=== PATIENT | male | born 1975 | race Caucasian/White ===

== ENCOUNTER 2020-09-12 10:58 | Emergency (ER) | payer OTHER ==
[~2020-09-12] VITALS: Ht 175 cm; Wt 99.7 kg
[~2020-09-12 10:58] MED LIST: CYCL10TA9 PO; NAPR-243 PO; TRAM-21 PO
--- NOTE | 2020-09-12 11:20 | ED Cough/URI ---
General Stated Complaint: COVID +, SOB Source: patient Exam Limitations: no limitations History of Present Illness Date Seen by Provider: Sep 12, 2020 Time Seen by Provider: 11:19 Initial Comments 45yo male to the ER with a complaint of cough, congestion, shortness of breath and fever chills and body aches, positive for coronavirus. States that he is feeling worse over the last 24 hours. recently finished up a "z pack", still febrile and coughing. Using home nebulizer and inhalers. Denies diarrhea or loss of sense of taste and smell. Timing/Duration: yesterday Severity/Quality: moderate, dry cough Prior Episodes/Possible Cause: illness exposure Modifying Factors: Improves With Albuterol Inhaler, Improves With Albuterol Nebulizer Associated Symptoms: cough, fever/chills, muscle aches, shortness of breath Allergies and Home Medications Allergies Coded Allergies: Codeine (Verified Allergy, Unknown, 08/18/08) Home Medications Cyclobenzaprine Hcl 10 Mg Tablet, 1 EACH PO Q8H Prescribed by: BUBBA JAMES on 11/06/14 1452 Levofloxacin 750 Mg Tablet, 750 MG PO DAILY Prescribed by: GÉNESIS AYALA on 09/12/20 1240 Naproxen 500 Mg Tablet, 1 EACH PO TID PRN for PAIN FOR PAIN Prescribed by: BUBBA JAMES on 11/06/14 1452 Tramadol Hcl 50 Mg Tablet, 50 MG PO Q4H Prescribed by: BUBBA JAMES on 11/06/14 1452 Patient Home Medication List Home Medication List Reviewed: Yes Review of Systems Review of Systems Constitutional: see HPI EENTM: no symptoms reported Respiratory: cough, short of breath Cardiovascular: no symptoms reported Gastrointestinal: no symptoms reported Genitourinary: no symptoms reported Musculoskeletal: muscle cramps Skin: no symptoms reported Psychiatric/Neurological: No Symptoms Reported All Other Systems Reviewed Negative Unless Noted: Yes Past Eixviav-Sdrsbh-Uedper Hx Immunizations Up To Date Date of Influenza Vaccine: Jun 11, 2014 Seasonal Allergies Seasonal Allergies: No Past Medical History Tonsillectomy, Vasectomy Physical Exam Vital Signs - First Documented 09/12/20 11:00 Temp 37.8 Pulse 78 Resp 29 B/P (MAP) 143/87 (105) Pulse Ox 95 O2 Delivery Nasal Cannula O2 Flow Rate 2.00 Capillary Refill : Height: 5'9" Weight: 225lbs. oz. 102.886098xv; BMI Method:Stated General Appearance: WD/WN, no apparent distress HEENT: normal ENT inspection Neck: full range of motion, supple Respiratory: no respiratory distress, no accessory muscle use, crackles (left base) Cardiovascular: regular rate, rhythm, no murmur Gastrointestinal: normal bowel sounds, non tender, soft Extremities: non-tender, normal inspection, no pedal edema, no calf tenderness Neurologic/Psychiatric: no motor/sensory deficits, alert, normal mood/affect, oriented x 3 Skin: normal color, warm/dry Focused Exam Lactate Level 09/12/20 11:15: Lactic Acid Level 1.30 Lactic Acid Level Laboratory Tests Test 09/12/20 11:15 Lactic Acid Level 1.30 MMOL/L (0.50-2.00) Progress/Results/Core Measures Suspected Sepsis SIRS Temperature: Pulse: Respiratory Rate: Laboratory Tests 09/12/20 11:15: White Blood Count 8.3 Blood Pressure / Mean: 09/12/20 11:15: Lactic Acid Level 1.30 Laboratory Tests 09/12/20 11:15: Creatinine 0.98, Platelet Count 215 Results/Orders Lab Results Laboratory Tests Test 09/12/20 11:15 Range/Units White Blood Count 8.3 4.3-11.0 10^3/uL Red Blood Count 4.76 4.30-5.52 10^6/uL Hemoglobin 14.6 13.3-17.7 g/dL Hematocrit 41 40-54 % Mean Corpuscular Volume 86 80-99 fL Mean Corpuscular Hemoglobin 31 25-34 pg Mean Corpuscular Hemoglobin Concent 36 32-36 g/dL Red Cell Distribution Width 11.8 10.0-14.5 % Platelet Count 215 130-400 10^3/uL Mean Platelet Volume 9.3 9.0-12.2 fL Immature Granulocyte % (Auto) 1 % Neutrophils (%) (Auto) 79 H 42-75 % Lymphocytes (%) (Auto) 15 12-44 % Monocytes (%) (Auto) 6 0-12 % Eosinophils (%) (Auto) 0 0-10 % Basophils (%) (Auto) 0 0-10 % Neutrophils # (Auto) 6.6 1.8-7.8 10^3/uL Lymphocytes # (Auto) 1.2 1.0-4.0 10^3/uL Monocytes # (Auto) 0.5 0.0-1.0 10^3/uL Eosinophils # (Auto) 0.0 0.0-0.3 10^3/uL Basophils # (Auto) 0.0 0.0-0.1 10^3/uL Immature Granulocyte # (Auto) 0.0 0.0-0.1 10^3/uL Sodium Level 136 135-145 MMOL/L Potassium Level 3.6 3.6-5.0 MMOL/L Chloride Level 104 98-107 MMOL/L Carbon Dioxide Level 22 21-32 MMOL/L Anion Gap 10 5-14 MMOL/L Blood Urea Nitrogen 16 7-18 MG/DL Creatinine 0.98 0.60-1.30 MG/DL Estimat Glomerular Filtration Rate > 60 BUN/Creatinine Ratio 16 Glucose Level 102 70-105 MG/DL Lactic Acid Level 1.30 0.50-2.00 MMOL/L Calcium Level 8.6 8.5-10.1 MG/DL C-Reactive Protein High Sensitivity 5.51 H 0.00-0.50 MG/DL Procalcitonin 0.20 H <0.10 NG/ML Micro Results Microbiology 09/12/20 Blood Culture - Preliminary, Resulted No growth 09/12/20 Blood Culture - Preliminary, Resulted No growth My Orders Orders - GÉNESIS AYALA MD Ed Iv/Invasive Line Start (09/12/20 11:20) Cbc With Automated Diff (09/12/20 11:20) Basic Metabolic Panel (09/12/20 11:20) Lactic Acid Analyzer (09/12/20 11:20) Blood Culture (09/12/20 11:20) Hs C Reactive Protein (09/12/20 11:20) Procalcitonin (Pct) (09/12/20 11:20) Chest 1 View, Ap/Pa Only (09/12/20 11:20) Blood Culture (09/12/20 11:40) Vital Signs/I&O 09/12/20 09/12/20 09/12/20 11:00 11:00 12:35 Temp 37.8 Pulse 78 72 Resp 29 24 B/P (MAP) 143/87 (105) 117/60 (105) Pulse Ox 95 95 O2 Delivery Nasal Cannula Nasal Cannula Room Air O2 Flow Rate 2.00 2.00 Capillary Refill : Progress Note : Time: 12:25 Progress Note Patient taken off oxygen and continues to sat 9495%. The patient is lying prone in the room at the time of this measurement. He states that he feels a little bit better. His labs are reviewed. His procalcitonin is very slightly elevated at 0.2. CRP is elevated at 5. White count is within normal range. He does have a left basilar infiltrate on chest x-ray. He did recently finish up a round of Zithromax I am going to go ahead and put him on Levaquin 750 mg once a day for 5 days. I have encouraged him to continue to use the albuterol inhaler at home as well as the nebulizer every 4-6 hours. He verbalizes understanding. He is comfortable with discharge. I will also encourage him to use tea with honey for his cough as well as Robitussin-DM. Patient is stable for discharge Diagnostic Imaging Diagonstic Imaging: Xray Plain Films/CT/US/NM/MRI: chest Comments [facility], [place] NAME: GRICELDA IMLLAN [place] [facility] REC#: [id number] PT STATUS: REG ER : 1975 PHYSICIAN: GÉNESIS AYALA MD ADMIT DATE: 09/12/20/ER Draft Date of Exam:09/12/20 CHEST 1 VIEW, AP/PA ONLY Indication: Shortness of breath. Time of exam: 11:38 AM No prior studies are available for comparison. There is patchy infiltrate left mid to lower lung field. Right lung is fairly clear. No effusion or pneumothorax. Impression: Patchy left basilar pneumonia. Dictated on workstation # [id number] Dict: 09/12/20 1139 Trans: 09/12/20 1143 CV [id number] Interpreted by: KAREN HERNANDEZ MD Electronically signed by: Departure Impression Primary Impression: Pneumonia due to COVID-19 virus Disposition: 01 HOME, SELF-CARE Condition: Stable Departure-Patient Inst. Decision time for Depature: 12:27 Referrals: JOSE C SUMMERS MD (PCP/Family) Primary Care Physician Patient Instructions: Coronavirus Disease 2019 (COVID-19) (DC) Add. Discharge Instructions: Drink plenty of fluids to stay well-hydrated. I have given you a prescription for Levaquin, 750 mg tablets, take these once a day for 5 days. Continue to use the albuterol nebulizer every 6 hours as needed. You can use the albuterol inhaler in between as needed. Return to the emergency department if you have any worsening shortness of breath, oxygen saturations that dropped below 90 or any other emergent concerning symptoms. Scripts Levofloxacin (Levofloxacin) 750 Mg Tablet 750 MG PO DAILY for 5 Days, #5 TAB Prov: GÉNESIS AYALA MD 09/12/20 Copy Copies To 1: JOSE C SUMMERS MD, KATHRYN M MD Sep 12, 2020 11:19
[2020-09-12 11:28] LABS: BASOPHILS % (AUTO) 0 % (0-10); EOSINOPHILS % (AUTO) 0 % (0-10); HEMATOCRIT 41 % (40-54); HEMOGLOBIN 14.6 g/dL (13.3-17.7); LYMPHOCYTES # (AUTO) 1.2 10^3/uL (1.0-4.0); LYMPHOCYTES % (AUTO) 15 % (12-44); MEAN CORPUSCULAR HEMOGLOBIN 31 pg (25-34); MEAN CORPUSCULAR HGB CONC 36 g/dL (32-36); MEAN CORPUSCULAR VOLUME 86 fL (80-99); MEAN PLATELET VOLUME 9.3 fL (9.0-12.2); MONOCYTES # (AUTO) 0.5 10^3/uL (0.0-1.0); MONOCYTES % (AUTO) 6 % (0-12); NEUTROPHILS # (AUTO) 6.6 10^3/uL (1.8-7.8); NEUTROPHILS % (AUTO) 79 % (42-75); PLATELET COUNT 215 10^3/uL (130-400); WHITE BLOOD COUNT 8.3 10^3/uL (4.3-11.0)
[2020-09-12 11:38] LABS: CHLORIDE 104 MMOL/L (98-107); POTASSIUM 3.6 MMOL/L (3.6-5.0); SODIUM 136 MMOL/L (135-145)
[2020-09-12 11:39] LABS: CALCIUM 8.6 MG/DL (8.5-10.1)
[2020-09-12 11:40] LABS: GLUCOSE 102 MG/DL (70-105)
[2020-09-12 11:41] LABS: CARBON DIOXIDE 22 MMOL/L (21-32)
[2020-09-12 11:43] LABS: CREATININE SERUM 0.98 MG/DL (0.60-1.30); GFR ESTIMATED > 60
--- NOTE | 2020-09-12 11:43 | Diagnostic Imaging Report ---
Indication: Shortness of breath. Time of exam: 11:38 AM No prior studies are available for comparison. There is patchy infiltrate left mid to lower lung field. Right lung is fairly clear. No effusion or pneumothorax. Impression: Patchy left basilar pneumonia. Dictated by: Dictated on workstation # [id number]
[2020-09-12 11:44] LABS: BUN/CREATININE RATIO 16
[2020-09-12] MEDS ORDERED: LEVO750T39 PO ×2 (12:31→12:40)
[2020-09-12 12:35] VITALS: BP 117/60
== END 2020-09-12 12:35 | disposition home or self-care (01) ==
LOC: EDUNIT# 10:58 → ER 10:59
DX: U07.1 COVID-19 (principal); J12.82 Pneumonia due to coronavirus disease 2019; Z88.5 Allergy status to narcotic agent
CPT/HCPCS: 36415; 71045; 80048; 83605; 84145; 85025; 86141; 87040

== ENCOUNTER 2020-09-16 12:32 | Inpatient (IN) | payer OTHER ==
[~2020-09-16] VITALS: Ht 175 cm; Wt 98.2 kg
[~2020-09-16 12:32] MED LIST changes: +LEVO750T39 PO
[2020-09-16] MEDS ORDERED: LACTATED RINGERS 1,000 ML IV ONE ×3 (12:46→15:55)
[2020-09-16 13:08] LABS: BASOPHILS % (AUTO) 0 % (0-10); EOSINOPHILS % (AUTO) 0 % (0-10); HEMATOCRIT 43 % (40-54); LYMPHOCYTES # (AUTO) 0.8 10^3/uL (1.0-4.0); LYMPHOCYTES % (AUTO) 8 % (12-44); MEAN CORPUSCULAR HEMOGLOBIN 31 pg (25-34); MEAN CORPUSCULAR HGB CONC 35 g/dL (32-36); MEAN CORPUSCULAR VOLUME 87 fL (80-99); MEAN PLATELET VOLUME 9.7 fL (9.0-12.2); MONOCYTES # (AUTO) 0.6 10^3/uL (0.0-1.0); MONOCYTES % (AUTO) 6 % (0-12); NEUTROPHILS # (AUTO) 8.3 10^3/uL (1.8-7.8); NEUTROPHILS % (AUTO) 84 % (42-75); PLATELET COUNT 306 10^3/uL (130-400); WHITE BLOOD COUNT 9.9 10^3/uL (4.3-11.0)
[2020-09-16 13:09] LABS: ABG BASE EXCESS 0.3 MMOL/L (-2.5-2.5); ABG OXYGEN SATURATION 99 % (94-100); ABG PCO2 35 MMHG (35-45); ABG PH 7.45 (7.37-7.43); ABG PO2 101 MMHG (79-93); ABG TCO2 25.2 MMOL/L (21.0-31.0); ALLENS TEST YES-POS; INSPIRED O2 10 L; PATIENT TEMP 97.2; VENTILATOR NO
[2020-09-16] MEDS ORDERED: PIPERACILLIN SODIUM/TAZOBACTAM 4.5 GM in NS (IVPB) 100 ML IV ONE (13:15)
[2020-09-16 13:16] LABS: ALBUMIN 3.7 GM/DL (3.2-4.5)
[2020-09-16 13:17] LABS: CHLORIDE 100 MMOL/L (98-107); POTASSIUM 3.7 MMOL/L (3.6-5.0); SODIUM 138 MMOL/L (135-145)
[2020-09-16 13:18] LABS: CALCIUM 9.3 MG/DL (8.5-10.1)
[2020-09-16 13:19] LABS: GLUCOSE 131 MG/DL (70-105); TOTAL PROTEIN 7.5 GM/DL (6.4-8.2)
[2020-09-16 13:20] LABS: CARBON DIOXIDE 31 MMOL/L (21-32)
[2020-09-16 13:21] LABS: BILIRUBIN,TOTAL 0.5 MG/DL (0.1-1.0)
[2020-09-16 13:22] LABS: ALKALINE PHOSPHATASE 79 U/L (40-136)
[2020-09-16 13:23] LABS: CREATININE SERUM 0.96 MG/DL (0.60-1.30); GFR ESTIMATED > 60
[2020-09-16 13:24] LABS: BUN/CREATININE RATIO 17
[2020-09-16 13:26] LABS: ALANINE AMINOTRANSFERASE 88 U/L (0-55)
--- NOTE | 2020-09-16 13:35 | ED Respiratory ---
General Chief Complaint: Respiratory Problems Stated Complaint: LOW O2 Nursing Triage Note: oxygen 66 at home, COCVID pos since 09/05/2020 Source: patient, old records Exam Limitations: no limitations History of Present Illness Date Seen by Provider: Sep 16, 2020 Time Seen by Provider: 12:40 Initial Comments This 45-year-old gentleman presents to the emergency room with shortness of breath related to COVID-19. He has been ill since September 05, was subsequently diagnosed with COVID-19, and was seen in the emergency room on September 12. At that time he had already finished a azithromycin and dexamethasone. He was found to have a lobar pneumonia and started on Levaquin. He ambulates into the ER today with an oxygen saturation of 64% on room air. He reports recent diarrhea that resulted in a 9 pound weight loss. He denies any other significant medical problems. He reports his symptoms of body aches and diarrhea have improved but the shortness of breath persists. Allergies and Home Medications Allergies Coded Allergies: codeine (Verified Allergy, Unknown, 08/18/08) Home Medications Cyclobenzaprine Hcl 10 Mg Tablet, 1 EACH PO Q8H Prescribed by: BUBBA JAMES on 11/06/14 1452 Levofloxacin 750 Mg Tablet, 750 MG PO DAILY Prescribed by: GÉNESIS AYALA on 09/12/20 1240 Naproxen 500 Mg Tablet, 1 EACH PO TID PRN for PAIN FOR PAIN Prescribed by: BUBBA JAMES on 11/06/14 1452 Tramadol Hcl 50 Mg Tablet, 50 MG PO Q4H Prescribed by: BUBBA JAMES on 11/06/14 1452 Patient Home Medication List Home Medication List Reviewed: Yes Review of Systems Review of Systems Constitutional: no symptoms reported EENTM: no symptoms reported Respiratory: see HPI Cardiovascular: no symptoms reported Gastrointestinal: see HPI Genitourinary: no symptoms reported Musculoskeletal: see HPI, muscle pain Skin: no symptoms reported Psychiatric/Neurological: No Symptoms Reported Hematologic/Lymphatic: No Symptoms Reported Immunological/Allergic: no symptoms reported Past Vvxdrfc-Vfzxnt-Kbjxjv Hx Past Med/Social Hx: Reviewed Nursing Past Med/Soc Hx Patient Social History Alcohol Use: Denies Use Recreational Drug Use: No Type Used: Smokeless Tobacco 2nd Hand Smoke Exposure: Yes Recent Foreign Travel: No Contact w/Someone Who Travel: No Recent Infectious Disease Expo: No Recent Hopitalizations: No Physical Abuse: No Sexual Abuse: No Mistreated: No Fear: No Immunizations Up To Date Date of Influenza Vaccine: Jul 12, 2020 Seasonal Allergies Seasonal Allergies: No Past Medical History Surgeries: Yes Joint Replacement, Tonsillectomy, Vasectomy Respiratory: No Cardiac: No Neurological: No Genitourinary: No Gastrointestinal: No Musculoskeletal: No Endocrine: No HEENT: No Cancer: No Psychosocial: No Integumentary: No Blood Disorders: No Physical Exam Vital Signs - First Documented 09/16/20 09/16/20 12:45 12:50 Temp 36.3 Pulse 62 Resp 30 B/P (MAP) 117/92 (100) Pulse Ox 62 O2 Delivery Room Air O2 Flow Rate 10.00 Capillary Refill : Less Than 3 Seconds Height: 5'9" Weight: 225lbs. oz. 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, no motor/sensory deficits, alert, normal mood/affect, oriented x 3 Skin: normal color, warm/dry Focused Exam Lactate Level 09/16/20 12:55: Lactic Acid Level 2.00 Lactic Acid Level Laboratory Tests Test 09/16/20 12:55 Lactic Acid Level 2.00 MMOL/L (0.50-2.00) Progress/Results/Core Measures Suspected Sepsis Recent Fever Within 48 Hours: No Infection Criteria Present: None New/Unexplained Altered Menta: No Sepsis Screen: No Definite Risk SIRS Temperature: Pulse: 63 Respiratory Rate: 25 Laboratory Tests 09/16/20 12:55: White Blood Count 9.9 Blood Pressure 117 /92 Mean: 100 09/16/20 12:55: Lactic Acid Level 2.00 Laboratory Tests 09/16/20 12:55: Creatinine 0.96, Platelet Count 306, Total Bilirubin 0.5 09/16/20 13:40: INR Comment 1.0 Results/Orders Lab Results Laboratory Tests Test 09/16/20 12:55 09/16/20 13:01 09/16/20 13:40 Range/Units White Blood Count 9.9 4.3-11.0 10^3/uL Red Blood Count 4.91 4.30-5.52 10^6/uL Hemoglobin 15.0 13.3-17.7 g/dL Hematocrit 43 40-54 % Mean Corpuscular Volume 87 80-99 fL Mean Corpuscular Hemoglobin 31 25-34 pg Mean Corpuscular Hemoglobin Concent 35 32-36 g/dL Red Cell Distribution Width 11.9 10.0-14.5 % Platelet Count 306 130-400 10^3/uL Mean Platelet Volume 9.7 9.0-12.2 fL Immature Granulocyte % (Auto) 2 % Neutrophils (%) (Auto) 84 H 42-75 % Lymphocytes (%) (Auto) 8 L 12-44 % Monocytes (%) (Auto) 6 0-12 % Eosinophils (%) (Auto) 0 0-10 % Basophils (%) (Auto) 0 0-10 % Neutrophils # (Auto) 8.3 H 1.8-7.8 10^3/uL Lymphocytes # (Auto) 0.8 L 1.0-4.0 10^3/uL Monocytes # (Auto) 0.6 0.0-1.0 10^3/uL Eosinophils # (Auto) 0.0 0.0-0.3 10^3/uL Basophils # (Auto) 0.0 0.0-0.1 10^3/uL Immature Granulocyte # (Auto) 0.2 H 0.0-0.1 10^3/uL Sodium Level 138 135-145 MMOL/L Potassium Level 3.7 3.6-5.0 MMOL/L Chloride Level 100 98-107 MMOL/L Carbon Dioxide Level 31 21-32 MMOL/L Anion Gap 7 5-14 MMOL/L Blood Urea Nitrogen 16 7-18 MG/DL Creatinine 0.96 0.60-1.30 MG/DL Estimat Glomerular Filtration Rate > 60 BUN/Creatinine Ratio 17 Glucose Level 131 H 70-105 MG/DL Lactic Acid Level 2.00 0.50-2.00 MMOL/L Calcium Level 9.3 8.5-10.1 MG/DL Corrected Calcium 9.5 8.5-10.1 MG/DL Total Bilirubin 0.5 0.1-1.0 MG/DL Aspartate Amino Transf (AST/SGOT) 70 H 5-34 U/L Alanine Aminotransferase (ALT/SGPT) 88 H 0-55 U/L Alkaline Phosphatase 79 40-136 U/L Lactate Dehydrogenase 472 H 125-220 U/L C-Reactive Protein High Sensitivity 16.82 H 0.00-0.50 MG/DL Total Protein 7.5 6.4-8.2 GM/DL Albumin 3.7 3.2-4.5 GM/DL Procalcitonin 0.26 H <0.10 NG/ML Blood Gas Puncture Site RT RAD Blood Gas Patient Temperature 97.2 Arterial Blood pH 7.45 H 7.37-7.43 Arterial Blood Partial Pressure CO2 35 35-45 MMHG Arterial Blood Partial Pressure O2 101 H 79-93 MMHG Arterial Blood HCO3 24 23-27 MMOL/L Arterial Blood Total CO2 25.2 21.0-31.0 MMOL/L Arterial Blood Oxygen Saturation 99 94-100 % Arterial Blood Base Excess 0.3 -2.5-2.5 MMOL/L Eh Test YES-POS Blood Gas Ventilator Setting NO Blood Gas Inspired Oxygen 10 L Prothrombin Time 13.9 12.2-14.7 SEC INR Comment 1.0 0.8-1.4 Activated Partial Thromboplast Time 31 24-35 SEC D-Dimer 0.47 0.00-0.49 UG/ML My Orders Orders - KEEGAN PRO MD Lactated Ringers (Lr 1000 Ml Iv Solution (09/16/20 12:46) Dexamethasone Injection (Decadron Inje (09/16/20 12:46) Fibrin Degradation Products (09/16/20 12:56) Procalcitonin (Pct) (09/16/20 12:56) Hs C Reactive Protein (09/16/20 12:56) LDH (09/16/20 12:56) Cbc With Automated Diff (09/16/20 12:56) Comprehensive Metabolic Panel (09/16/20 12:56) Blood Culture (09/16/20 12:56) Sputum Culture (09/16/20 12:56) Urinalysis (09/16/20 12:56) Urine Culture (09/16/20 12:56) Protime With Inr (09/16/20 12:56) Partial Thromboplastin Time (09/16/20 12:56) Chest 1 View, Ap/Pa Only (09/16/20 12:56) Ed Iv/Invasive Line Start (09/16/20 12:56) Ed Iv/Invasive Line Start (09/16/20 12:56) Vital Signs Adult Sepsis Patie Q15M (09/16/20 12:56) O2 (09/16/20 12:56) Remove Rings In Anticipation O (09/16/20 12:56) Lactic Acid Analyzer (09/16/20 12:56) Dexamethasone Injection (Decadron Inje (09/16/20 13:00) Lactated Ringers (Lr 1000 Ml Iv Solution (09/16/20 13:00) Piperacillin Sodium/Tazobactam (Zosyn Vi (09/16/20 13:15) Arterial Blood Gas (09/16/20 13:04) Medications Given in ED Current Medications Medications Dose Ordered Sig/Snow Route Start Time Stop Time Status Last Admin Dose Admin Dexamethasone Sodium Phosphate 6 mg ONCE ONCE IV 09/16/20 13:00 09/16/20 13:01 DC 09/16/20 12:50 6 MG Lactated Ringer's 1,000 ml @ 0 mls/hr Q0M ONCE IV 09/16/20 13:00 09/16/20 13:01 DC 09/16/20 12:45 0 MLS/HR Piperacillin Sod/ Tazobactam Sod 4.5 gm/Sodium Chloride 100 ml @ 200 mls/hr ONCE ONCE IV 09/16/20 13:15 09/16/20 13:44 DC 09/16/20 13:50 200 MLS/HR Vital Signs/I&O 09/16/20 09/16/20 09/16/20 12:45 12:50 13:05 Temp 36.3 Pulse 62 63 Resp 30 25 B/P (MAP) 117/92 (100) Pulse Ox 62 86 100 O2 Delivery Room Air OxyMask O2 Flow Rate 10.00 80.00 Capillary Refill : Less Than 3 Seconds Blood Pressure Mean: 100 Progress Note #1: Time: 13:37 Progress Note Patient was immediately given oxygen supplementation. An oxygen mask at 10 L resulted in oxygen saturations of 87%. He is now on BiPAP and oxygen saturation is 100%. Dexamethasone is being administered. Work-up is still pending. Due to weight loss from diarrhea a liter of IV LR is also infusing. I discussed the case with Dr. Norwood who would like antibiotics initiated with Zosyn. Dr. Alfonso was also consulted. Progress Note #2: Time: 14:48 Progress Note Patient has been stable on BiPAP. D-dimer was negative. Procalcitonin was fairly low. He is being admitted to the ICU. Diagnostic Imaging Diagonstic Imaging: Xray Plain Films/CT/US/NM/MRI: chest Comments Chest x-ray viewed by me and report reviewed. See report below: NAME: GRICELDA MILLAN [facility] REC#: [id number] PT STATUS: REG ER : 1975 PHYSICIAN: KEEGAN PRO MD ADMIT DATE: 09/16/20/ER Draft Date of Exam:09/16/20 CHEST 1 VIEW, AP/PA ONLY Indication: Respiratory distress Portable chest 1:41 PM There are patchy alveolar infiltrates in both lungs. There are no effusions or pneumothoraces. IMPRESSION: Patchy pulmonary infiltrates in both lungs appears slightly worse compared to exam dated 09/12/2020. Dictated on workstation # [id number] Dict: 09/16/20 1343 Trans: 09/16/20 1345 [facility] [id number] Interpreted by: DEBBIE MOORE MD Departure Communication (Admissions) Time/Spoke to Admitting Phy: 13:05 Dr. Norwood Time/Spoke to Consulting Phy: 13:10 Dr. Alfonso Impression Primary Impression: Pneumonia due to COVID-19 virus Additional Impression: Respiratory failure Qualified Codes: J96.01 - Acute respiratory failure with hypoxia Disposition: ADMITTED INPATIENT Condition: Improved Admissions Decision to Admit Reason: Admit from ER (General) Decision to Admit/Date: Sep 16, 2020 Time/Decision to Admit Time: 12:40 Departure-Patient Inst. Referrals: JOSE C SUMMERS MD (PCP/Family) Primary Care Physician KEEGAN PRO MD Sep 16, 2020 13:35
--- NOTE | 2020-09-16 13:45 | Diagnostic Imaging Report ---
Indication: Respiratory distress Portable chest 1:41 PM There are patchy alveolar infiltrates in both lungs. There are no effusions or pneumothoraces. IMPRESSION: Patchy pulmonary infiltrates in both lungs appears slightly worse compared to exam dated 09/12/2020. Dictated by: Dictated on workstation # [id number]
[2020-09-16 14:16] LABS: FIBRIN DEGRADATION PRODUCTS 0.47 UG/ML (0.00-0.49); PROTHROMBIN TIME PATIENT 13.9 SEC (12.2-14.7)
[2020-09-16] MEDS: LACTATED RINGERS 1,000 ML IV SCH ×2 (16:27→23:22)
[2020-09-16] MEDS ORDERED: ACETAMINOPHEN 500 MG TAB (TYLENOL) PO PRN (16:30)
[2020-09-16] MEDS ORDERED: CATHETER FLUSH 10 ML SYR IV PRN (16:30)
[2020-09-16] MEDS ORDERED: hydrALAZINE (APESOLINE) 20 MG/ML VIAL IV PRN (16:45)
[2020-09-16 17:00] VITALS: BP 158/126
[2020-09-16] MEDS: ENOXAPARIN 40 MG/0.4 ML (LOVENOX) SYR SC SCH (17:47)
[2020-09-16 18:00] VITALS: BP 143/81
[2020-09-16 18:01] LABS: BILIRUBIN,URINE NEGATIVE (NEGATIVE); CLARITY,URINE CLEAR; COLOR,URINE YELLOW; GLUCOSE, URINE (UA) NEGATIVE (NEGATIVE); KETONES,URINE NEGATIVE (NEGATIVE); LEUKOCYTE ESTERASE ,URINE NEGATIVE (NEGATIVE); NITRITE,URINE NEGATIVE (NEGATIVE); PH,URINE 5.5 (5-9); PROTEIN,URINE 1+ (NEGATIVE)
[2020-09-16 18:08] LABS: BACTERIA,URINE NEGATIVE /HPF
[2020-09-16] MEDS: PIPERACILLIN/TAZO 4.5 GM/NS 100 ML IV SCH ×2 (20:28)
[2020-09-16] MEDS: FAMOTIDINE 20MG/2ML IV (PEPCID) IVP SCH (20:28)
[2020-09-16] MEDS: RT-ALBUTEROL INHALER HFA (VENTOLIN HFA) 18 GM IH SCH (22:24)
[2020-09-17] MEDS: RT-ALBUTEROL INHALER HFA (VENTOLIN HFA) 18 GM IH SCH ×4 (02:40→18:25)
[2020-09-17 02:54] LABS: BASOPHILS % (AUTO) 0 % (0-10); EOSINOPHILS % (AUTO) 0 % (0-10); HEMATOCRIT 40 % (40-54); HEMOGLOBIN 13.7 g/dL (13.3-17.7); LYMPHOCYTES # (AUTO) 0.9 10^3/uL (1.0-4.0); LYMPHOCYTES % (AUTO) 9 % (12-44); MEAN CORPUSCULAR HEMOGLOBIN 30 pg (25-34); MEAN CORPUSCULAR HGB CONC 35 g/dL (32-36); MEAN CORPUSCULAR VOLUME 88 fL (80-99); MEAN PLATELET VOLUME 9.3 fL (9.0-12.2); MONOCYTES # (AUTO) 0.7 10^3/uL (0.0-1.0); MONOCYTES % (AUTO) 7 % (0-12); NEUTROPHILS # (AUTO) 7.7 10^3/uL (1.8-7.8); NEUTROPHILS % (AUTO) 82 % (42-75); PLATELET COUNT 286 10^3/uL (130-400); WHITE BLOOD COUNT 9.4 10^3/uL (4.3-11.0)
[2020-09-17 03:09] LABS: CHLORIDE 103 MMOL/L (98-107); POTASSIUM 4.4 MMOL/L (3.6-5.0); SODIUM 137 MMOL/L (135-145)
[2020-09-17 03:10] LABS: CALCIUM 8.8 MG/DL (8.5-10.1); GLUCOSE 140 MG/DL (70-105)
[2020-09-17 03:12] LABS: CARBON DIOXIDE 18 MMOL/L (21-32)
[2020-09-17 03:14] LABS: CREATININE SERUM 0.96 MG/DL (0.60-1.30); GFR ESTIMATED > 60; PHOSPHORUS 3.9 MG/DL (2.3-4.7)
[2020-09-17 03:15] LABS: BUN/CREATININE RATIO 23
[2020-09-17 03:17] LABS: MAGNESIUM 2.1 MG/DL (1.6-2.4)
[2020-09-17] MEDS: POTASSIUM CL 10MEQ/50ML IVPB 50 ML IV SCH (03:30)
[2020-09-17] MEDS: KCL 20 MEQ TAB (K-DUR) PO SCH (03:31)
[2020-09-17] MEDS: MAGNESIUM 1 GM/100 ML IVPB 100 ML IV SCH (03:31)
[2020-09-17] MEDS: LACTATED RINGERS 1,000 ML IV SCH (03:46)
[2020-09-17] MEDS: PIPERACILLIN/TAZO 4.5 GM/NS 100 ML IV SCH ×6 (03:46→20:19)
--- NOTE | 2020-09-17 06:01 | Pulmonary Consultation ---
History of Present Illness History of Present Illness Date Seen by Provider: Sep 17, 2020 Time Seen by Provider: 05:55 Date of Admission Allergies and Home Medications Allergies Coded Allergies: codeine (Verified Allergy, Unknown, 08/18/08) Home Medications Albuterol Sulfate 18 Gm Hfa.aer.ad, 2 PUFF INH QID PRN for SHORTNESS OF BREATH, (Reported) Ascorbate Calcium 500 Mg Tablet, 500 MG PO DAILY, (Reported) Aspirin 81 Mg Tablet.dr, 81 MG PO DAILY, (Reported) Cetirizine HCl 10 Mg Tablet, 10 MG PO DAILY, (Reported) Cholecalciferol (Vitamin D3) 25 Mcg Capsule, 25 MCG PO DAILY, (Reported) Dexamethasone 6 Mg Tablet, 6 MG PO DAILY, (Reported) FILLED 08-19-2020 #10/10 DAY SUPPLY Levofloxacin 750 Mg Tablet, 750 MG PO DAILY, (Reported) FILLED 09-12-2020 #5/ DAY SUPPLY Meloxicam 15 Mg Tablet, 15 MG PO DAILY, (Reported) Multivitamin 1 Each Tablet, 1 EACH PO DAILY, (Reported) Zinc Gluconate 50 Mg Tablet, 50 MG PO DAILY, (Reported) Past Ytywsbs-Nbcugt-Rcgbqt Hx Past Med/Social Hx: Reviewed Nursing Past Med/Soc Hx Patient Social History Alcohol Use: Denies Use Recreational Drug Use: No Type Used: Smokeless Tobacco 2nd Hand Smoke Exposure: Yes Recent Foreign Travel: No Contact w/Someone Who Travel: No Recent Infectious Disease Expo: No Recent Hopitalizations: No Physical Abuse: No Sexual Abuse: No Mistreated: No Fear: No Immunizations Up To Date Date of Influenza Vaccine: Jul 17, 2020 Seasonal Allergies Seasonal Allergies: No Past Medical History Surgeries: Yes Joint Replacement, Tonsillectomy, Vasectomy Respiratory: No Cardiac: No Neurological: No Genitourinary: No Gastrointestinal: No Musculoskeletal: No Endocrine: No HEENT: No Cancer: No Psychosocial: No Integumentary: No Blood Disorders: No Review of Systems Time Seen by Provider: 10:45 Sepsis Event Evaluation Height, Weight, BMI Height: 5'9" Weight: 225lbs. oz. 102.340189eh; 32.00 BMI Method:Stated Exam Exam Vital Signs Date Time Temp Pulse Resp B/P (MAP) Pulse Ox O2 Delivery O2 Flow Rate FiO2 09/17/20 04:00 52 24 136/86 (104) 97 NIV Bilevel 75.00 09/17/20 03:00 62 127/78 (93) NIV Bilevel 75.00 09/17/20 02:40 61 30 94 75.00 09/17/20 02:00 55 30 122/77 (89) 96 NIV Bilevel 75.00 09/17/20 01:00 31 118/69 (84) 94 NIV Bilevel 75.00 09/17/20 00:15 63 09/17/20 00:01 66 30 137/86 (99) 92 NIV Bilevel 75.00 09/17/20 00:00 80/54 (61) 09/17/20 00:00 36.6 09/16/20 23:00 70 34 133/82 (102) 92 NIV Bilevel 75.00 09/16/20 22:31 NIV Bilevel 75.00 09/16/20 22:20 70 25 92 80.00 09/16/20 22:00 60 17 134/91 (105) 96 Vapotherm 30.00 75.00 09/16/20 21:00 68 26 116/65 (78) 95 Vapotherm 30.00 75.00 09/16/20 20:00 92 NIV Bilevel 30.00 75 09/16/20 20:00 68 22 171/109 (129) 92 Vapotherm 30.00 75.00 09/16/20 19:26 36.5 09/16/20 19:00 58 09/16/20 19:00 71 21 166/101 (122) 92 Vapotherm 30.00 75.00 09/16/20 18:35 58 09/16/20 18:24 93 Vapotherm 20.00 75 09/16/20 18:00 61 32 143/81 (101) 96 NIV Bilevel 75.00 09/16/20 17:00 62 28 158/126 (137) 97 NIV Bilevel 75.00 09/16/20 17:00 57 24 158/110 (126) 92 NIV Bilevel 75.00 09/16/20 16:29 36.0 09/16/20 16:10 95 NIV Bilevel 75 09/16/20 16:00 58 31 153/109 (124) 96 NIV Bilevel 75.00 09/16/20 16:00 91 NIV Bilevel 75 09/16/20 15:55 59 32 122/88 (100) 94 NIV Bilevel 10.00 09/16/20 15:43 77 09/16/20 13:05 63 25 100 80.00 09/16/20 12:50 86 OxyMask 10.00 09/16/20 12:45 36.3 62 30 117/92 (100) 62 Room Air I & O 09/17/20 07:00 Intake Total 625 ml Output Total 750 ml Balance -125 ml Height & Weight Height: 5'9" Weight: 225lbs. oz. 102.268469af; 32.00 BMI Method:Stated Capillary Refill: Less Than 3 Seconds Gastrointestinal: normal bowel sounds, non tender, soft Results Lab Laboratory Tests 09/16/20 12:55 09/17/20 02:30 Assessment/Plan Assessment/Plan Acute respiratory failure -BiPAP COVID pneumonia with ARDS -Decadron -CVP -BiPAP - Currently requiring at 80% -Vapotherm -Proning -Does not meet requirements for remdesivir Elevated LFTs -Monitor -Check LFTs TELMA FRANCISCO DO Sep 17, 2020 06:01
--- NOTE | 2020-09-17 08:27 | Diagnostic Imaging Report ---
INDICATION: DYSPNEA. TECHNIQUE: Single view chest 3:40 AM. CORRELATION STUDY: 09/16/2020 FINDINGS: Heart size remains enlarged. Scattered patchy bilateral pulmonary infiltrates persisting but overall appear perhaps slightly improved at the lung bases but may be slightly increased involving the right upper lobe. IMPRESSION: 1. Bilateral patchy pulmonary infiltrates are again demonstrated. Overall perhaps slightly improved at the lung bases but increased at the right upper lobe. Dictated by: Dictated on workstation # [id number]
[2020-09-17] MEDS: FAMOTIDINE 20MG/2ML IV (PEPCID) IVP SCH ×2 (09:06→21:05)
[2020-09-17] MEDS ORDERED: CETI10TA4 PO (14:12)
[2020-09-17] MEDS ORDERED: DEXA6TAB PO (14:12)
[2020-09-17] MEDS ORDERED: CHOL10007 PO (14:12)
[2020-09-17] MEDS ORDERED: ASPI-1238 PO (14:12)
[2020-09-17] MEDS ORDERED: ASCO-262 PO (14:12)
[2020-09-17] MEDS ORDERED: MULT-1136 PO (14:12)
[2020-09-17] MEDS ORDERED: ZINC50TA11 PO (14:12)
[2020-09-17] MEDS ORDERED: LEVO750T39 PO (14:12)
[2020-09-17] MEDS ORDERED: ALBU18HF2 INH (14:12)
[2020-09-17] MEDS ORDERED: MELO15TA39 PO (14:12)
--- NOTE | 2020-09-17 14:13 | NUR ---
SPOKE WITH THE PT (CALLED HIS CELL) AND WENT THRU THE EXT MED HISTORY TO COMPLETE THE MED REC PT WAS ABLE TO LIST ALL HIS MEDICATIONS (RX&OTC) WELL WHEN/HOW HE TAKES EACH OTC MEDS: ASPIRIN 81MG VIT D VIT C ZINC MTV CETIRIZINE
[2020-09-17 14:17] VITALS: BP 145/87
[2020-09-17] MEDS ORDERED: NS IV 500 ML 500 ML ONE (14:23)
[2020-09-17 14:30] VITALS: BP 148/89
[2020-09-17 14:45] VITALS: BP 149/98
[2020-09-17] MEDS: ENOXAPARIN 40 MG/0.4 ML (LOVENOX) SYR SC SCH (15:50)
[2020-09-17 16:45] VITALS: BP 139/84
[2020-09-17 21:11] VITALS: BP 146/96
[2020-09-17 21:50] LABS: HEPATITIS C ANTIBODY C Non-Reactive (Non-Reactive)
[2020-09-18 01:24] VITALS: BP 146/96
[2020-09-18] MEDS: RT-ALBUTEROL INHALER HFA (VENTOLIN HFA) 18 GM IH SCH ×4 (01:24→19:11)
[2020-09-18 03:53] LABS: BASOPHILS % (AUTO) 0 % (0-10); EOSINOPHILS % (AUTO) 0 % (0-10); HEMATOCRIT 39 % (40-54); HEMOGLOBIN 13.5 g/dL (13.3-17.7); LYMPHOCYTES # (AUTO) 1.2 10^3/uL (1.0-4.0); LYMPHOCYTES % (AUTO) 9 % (12-44); MEAN CORPUSCULAR HEMOGLOBIN 31 pg (25-34); MEAN CORPUSCULAR HGB CONC 35 g/dL (32-36); MEAN CORPUSCULAR VOLUME 88 fL (80-99); MEAN PLATELET VOLUME 9.3 fL (9.0-12.2); MONOCYTES # (AUTO) 0.9 10^3/uL (0.0-1.0); MONOCYTES % (AUTO) 7 % (0-12); NEUTROPHILS % (AUTO) 83 % (42-75); PLATELET COUNT 293 10^3/uL (130-400); WHITE BLOOD COUNT 13.2 10^3/uL (4.3-11.0)
[2020-09-18] MEDS: PIPERACILLIN/TAZO 4.5 GM/NS 100 ML IV SCH ×6 (04:01→20:04)
[2020-09-18 04:03] LABS: CHLORIDE 104 MMOL/L (98-107); SODIUM 138 MMOL/L (135-145)
[2020-09-18 04:04] LABS: CALCIUM 8.6 MG/DL (8.5-10.1)
[2020-09-18 04:05] LABS: GLUCOSE 101 MG/DL (70-105)
[2020-09-18 04:06] LABS: CARBON DIOXIDE 23 MMOL/L (21-32)
[2020-09-18 04:08] LABS: PHOSPHORUS 3.7 MG/DL (2.3-4.7)
[2020-09-18 04:09] LABS: CREATININE SERUM 0.84 MG/DL (0.60-1.30); GFR ESTIMATED > 60
[2020-09-18 04:10] LABS: BUN/CREATININE RATIO 27
[2020-09-18 04:11] LABS: MAGNESIUM 2.3 MG/DL (1.6-2.4)
--- NOTE | 2020-09-18 04:36 | Diagnostic Imaging Report ---
Indication: Shortness of breath Portable chest 2:00 AM There are patchy groundglass infiltrates in both lungs. There are no effusions or pneumothoraces. Heart size is within normal limits. IMPRESSION: Patchy alveolar infiltrates in both lungs. No significant change from previous day. Dictated by: Dictated on workstation # [id number]
--- NOTE | 2020-09-18 05:27 | Pulmonary Progress Note ---
Subjective Time Seen by a Provider: 05:25 Sepsis Event Evaluation Height, Weight, BMI Height: 5'9" Weight: 225lbs. oz. 102.091690it; 32.00 BMI Method:Stated Focused Exam Lactate Level 09/16/20 12:55: Lactic Acid Level 2.00 Exam Exam Vital Signs Date Time Temp Pulse Resp B/P (MAP) Pulse Ox O2 Delivery O2 Flow Rate FiO2 09/18/20 03:00 56 19 126/87 (100) 89 NIV Bilevel 75.00 09/18/20 02:00 52 22 141/88 (105) 96 NIV Bilevel 75.00 09/18/20 01:24 55 23 97 75.00 09/18/20 01:15 54 09/18/20 01:00 49 17 129/87 (101) 94 NIV Bilevel 75.00 09/18/20 00:00 58 13 197/122 (147) 90 NIV Bilevel 75.00 09/17/20 23:42 35.8 09/17/20 23:00 70 25 144/100 (112) 92 NIV Bilevel 75.00 09/17/20 22:00 64 14 133/90 (105) 95 NIV Bilevel 75.00 09/17/20 21:17 NIV Bilevel 75.00 09/17/20 21:11 55 23 94 75.00 09/17/20 21:00 68 20 146/96 (110) 87 Vapotherm 30.00 75.00 09/17/20 21:00 92 Vapotherm 30.00 75 09/17/20 20:00 Vapotherm 30.00 75.00 09/17/20 20:00 73 29 144/78 (98) 89 NIV Bilevel 75.00 09/17/20 19:19 36.0 09/17/20 19:00 69 09/17/20 19:00 69 27 129/73 (91) 91 NIV Bilevel 75.00 09/17/20 18:25 95 Vapotherm 30.00 70 09/17/20 18:00 66 23 147/90 (109) 90 NIV Bilevel 75.00 09/17/20 17:00 71 27 135/85 (102) 90 NIV Bilevel 75.00 09/17/20 16:45 36.0 61 18 139/84 90 Vapotherm 30.00 70 09/17/20 16:00 68 30 132/75 (94) 89 NIV Bilevel 75.00 09/17/20 15:56 36.3 09/17/20 15:32 95 Vapotherm 30.00 80 09/17/20 15:00 65 25 140/80 (100) 92 NIV Bilevel 75.00 09/17/20 14:45 36.0 63 22 149/98 90 Vapotherm 30.00 09/17/20 14:30 35.8 66 21 148/89 90 Vapotherm 30.00 80 09/17/20 14:17 35.8 63 22 145/87 90 Vapotherm 30.00 09/17/20 14:00 64 21 130/93 (105) 94 NIV Bilevel 75.00 09/17/20 13:00 60 30 190/125 (146) 93 NIV Bilevel 75.00 09/17/20 12:39 70 09/17/20 12:00 56 27 120/78 (92) 94 NIV Bilevel 75.00 09/17/20 11:43 88 Vapotherm 30.00 80 09/17/20 11:00 59 12 132/88 (103) 90 NIV Bilevel 75.00 09/17/20 10:00 58 11 134/93 (107) 96 NIV Bilevel 75.00 09/17/20 09:00 92 Vapotherm 30.00 80 09/17/20 09:00 60 24 132/81 (98) 96 NIV Bilevel 75.00 09/17/20 08:12 90 Vapotherm 30.00 75 09/17/20 08:00 67 13 121/74 (90) 94 NIV Bilevel 75.00 09/17/20 07:55 35.9 09/17/20 07:09 54 09/17/20 07:00 56 20 129/83 (98) 91 NIV Bilevel 75.00 09/17/20 06:00 60 21 120/75 (90) 90 NIV Bilevel 75.00 I & O 09/18/20 07:00 Intake Total 2100 ml Output Total 950 ml Balance 1150 ml Height & Weight Height: 5'9" Weight: 225lbs. oz. 102.082245ye; 32.00 BMI Method:Stated Capillary Refill: Less Than 3 Seconds Gastrointestinal: normal bowel sounds, non tender, soft Results Lab Laboratory Tests 09/16/20 12:55 09/17/20 02:30 09/18/20 03:30 Assessment/Plan Assessment/Plan Acute respiratory failure -BiPAP 75% -Vapotherm 90% -IVF mikeeny Lr 30 --- Will SL IVF COVID pneumonia with ARDS -Decadron -CVP -Zosyn -Proning -Does not meet requirements for remdesivir Elevated LFTs -Monitor Gi/DVT ppx -Lovefaribax, TELMA Nickerson DO Sep 18, 2020 05:27
[2020-09-18] MEDS: MAGNESIUM 1 GM/100 ML IVPB 100 ML IV SCH (06:40)
[2020-09-18] MEDS: POTASSIUM CL 10MEQ/50ML IVPB 50 ML IV SCH (06:40)
[2020-09-18] MEDS: KCL 20 MEQ TAB (K-DUR) PO SCH (06:40)
[2020-09-18] MEDS: FAMOTIDINE 20MG/2ML IV (PEPCID) IVP SCH ×2 (08:46→20:03)
[2020-09-18] MEDS ORDERED: LOPERAMIDE 2 MG (IMODIUM) TABLET ONE (09:02)
[2020-09-18] MEDS: LOPERAMIDE 2 MG (IMODIUM) TABLET PO PRN ×2 (09:13→13:20)
[2020-09-18 10:13] VITALS: BP 191/117
[2020-09-18] MEDS: ENOXAPARIN 40 MG/0.4 ML (LOVENOX) SYR SC SCH (16:49)
[2020-09-19] MEDS: RT-ALBUTEROL INHALER HFA (VENTOLIN HFA) 18 GM IH SCH ×4 (01:17→21:04)
[2020-09-19] MEDS: PIPERACILLIN/TAZO 4.5 GM/NS 100 ML IV SCH ×6 (03:56→20:01)
[2020-09-19 04:00] LABS: BASOPHILS % (AUTO) 0 % (0-10); EOSINOPHILS # (AUTO) 0.1 10^3/uL (0.0-0.3); EOSINOPHILS % (AUTO) 1 % (0-10); HEMATOCRIT 40 % (40-54); HEMOGLOBIN 13.5 g/dL (13.3-17.7); LYMPHOCYTES # (AUTO) 1.1 10^3/uL (1.0-4.0); LYMPHOCYTES % (AUTO) 10 % (12-44); MEAN CORPUSCULAR HEMOGLOBIN 30 pg (25-34); MEAN CORPUSCULAR HGB CONC 34 g/dL (32-36); MEAN CORPUSCULAR VOLUME 89 fL (80-99); MEAN PLATELET VOLUME 9.4 fL (9.0-12.2); MONOCYTES # (AUTO) 0.7 10^3/uL (0.0-1.0); MONOCYTES % (AUTO) 6 % (0-12); NEUTROPHILS # (AUTO) 8.6 10^3/uL (1.8-7.8); NEUTROPHILS % (AUTO) 80 % (42-75); PLATELET COUNT 266 10^3/uL (130-400); WHITE BLOOD COUNT 10.8 10^3/uL (4.3-11.0)
[2020-09-19 04:14] LABS: CHLORIDE 102 MMOL/L (98-107); SODIUM 138 MMOL/L (135-145)
[2020-09-19 04:16] LABS: CALCIUM 8.5 MG/DL (8.5-10.1); GLUCOSE 145 MG/DL (70-105)
[2020-09-19 04:18] LABS: CARBON DIOXIDE 24 MMOL/L (21-32)
[2020-09-19 04:20] LABS: CREATININE SERUM 0.85 MG/DL (0.60-1.30); GFR ESTIMATED > 60; PHOSPHORUS 3.1 MG/DL (2.3-4.7)
[2020-09-19 04:21] LABS: BUN/CREATININE RATIO 21
[2020-09-19 04:23] LABS: MAGNESIUM 2.4 MG/DL (1.6-2.4)
[2020-09-19] MEDS: POTASSIUM CL 10MEQ/50ML IVPB 50 ML IV SCH (04:47)
[2020-09-19] MEDS: KCL 20 MEQ TAB (K-DUR) PO SCH (04:47)
[2020-09-19] MEDS: MAGNESIUM 1 GM/100 ML IVPB 100 ML IV SCH (04:47)
--- NOTE | 2020-09-19 08:37 | Diagnostic Imaging Report ---
INDICATION: DYSPNEA. TECHNIQUE: Single view chest 3:10 AM. CORRELATION STUDY: 09/18/2020 FINDINGS: Bilateral pulmonary infiltrate is again demonstrated overall has increased in severity. Most pronounced at the lung bases. Heart size remains enlarged. Vasculature is perhaps slightly more prominent. IMPRESSION: 1. Increasing bilateral pulmonary infiltrates likely worsening pneumonia. Dictated by: Dictated on workstation # [id number]
[2020-09-19] MEDS: FAMOTIDINE 20MG/2ML IV (PEPCID) IVP SCH ×2 (08:46→20:01)
[2020-09-19] MEDS: LOPERAMIDE 2 MG (IMODIUM) TABLET PO PRN ×2 (08:47→12:09)
[2020-09-19] MEDS ORDERED: FUROSEMIDE 40 MG/4 ML INJ (LASIX) IVP NR (11:15)
--- NOTE | 2020-09-19 12:50 | Progress Note - Hospitalist ---
Subjective HPI/CC On Admission Date Seen by Provider: Sep 19, 2020 Time Seen by Provider: 09:50 Subjective/Events-last exam he is still short of breath. He has been able to get up and move around. He is wondering what he can do to help. He is going to try proning. He denies fevers. He is having diarrhea. Focused Exam Lactate Level 09/16/20 12:55: Lactic Acid Level 2.00 Objective Exam Vital Signs Vital Signs Date Time Temp Pulse Resp B/P (MAP) Pulse Ox O2 Delivery O2 Flow Rate FiO2 09/19/20 12:00 37.0 09/19/20 12:00 74 20 120/67 (84) 93 Vapotherm 35.00 90.00 09/19/20 06:57 90 Capillary Refill : Less Than 3 SecondsLess Than 3 Seconds General Appearance: No Apparent Distress, Obese Respiratory: Lungs Clear, Normal Breath Sounds, No Respiratory Distress Cardiovascular: Regular Rate, Rhythm, No Edema, No Murmur Gastrointestinal: Normal Bowel Sounds, Non Tender, Soft Extremity: Normal Inspection, Non Tender, No Pedal Edema Neurologic/Psychiatric: Alert, Oriented x3, No Motor/Sensory Deficits, Normal Mood/Affect Skin: Normal Color, Warm/Dry Results/Procedures Lab Laboratory Tests 09/19/20 03:10 Patient resulted labs reviewed. Imaging: Reviewed Imaging Report Assessment/Plan Assessment and Plan Assess & Plan/Chief Complaint ARDS due to COVID-19 PNA due to COVID-19 Diarrhea due to COVID-19 PNA Decadron Not a candidate for Remdesivir s/p convalescent plasma x1 Zosyn for bacterial pneumonia Vapotherm and BiPAP as needed Imodium as needed for diarrhea Proning as tolerated Incentive spirometry Prophylactic Lovenox Elevated LFTs Likely due to COVID Hepatitis panel negative Monitor Obesity Clinically significant, no acute management needs DVT prophylaxis: Lovenox Diagnosis/Problems Diagnosis/Problems (1) Acute respiratory distress syndrome (ARDS) due to COVID-19 virus Status: Acute (2) Pneumonia due to COVID-19 virus Status: Acute (3) PNA (pneumonia) Status: Acute (4) Elevated LFTs Status: Acute (5) Obesity Status: Chronic (6) Diarrhea due to COVID-19 Status: Acute Clinical Quality Measures DVT/VTE Risk/Contraindication: Risk Factor Score Per Nursin RFS Level Per Nursing on Admit: 4+=Very High ISHMAEL WEBER MD Sep 19, 2020 12:49
[2020-09-19] MEDS: ENOXAPARIN 40 MG/0.4 ML (LOVENOX) SYR SC SCH (16:52)
[2020-09-20] MEDS: RT-ALBUTEROL INHALER HFA (VENTOLIN HFA) 18 GM IH SCH ×3 (01:18→14:18)
[2020-09-20 03:32] LABS: BASOPHILS % (AUTO) 0 % (0-10); EOSINOPHILS # (AUTO) 0.3 10^3/uL (0.0-0.3); EOSINOPHILS % (AUTO) 2 % (0-10); HEMATOCRIT 39 % (40-54); HEMOGLOBIN 13.6 g/dL (13.3-17.7); LYMPHOCYTES # (AUTO) 0.9 10^3/uL (1.0-4.0); LYMPHOCYTES % (AUTO) 8 % (12-44); MEAN CORPUSCULAR HEMOGLOBIN 30 pg (25-34); MEAN CORPUSCULAR HGB CONC 35 g/dL (32-36); MEAN CORPUSCULAR VOLUME 87 fL (80-99); MEAN PLATELET VOLUME 9.2 fL (9.0-12.2); MONOCYTES # (AUTO) 0.8 10^3/uL (0.0-1.0); MONOCYTES % (AUTO) 7 % (0-12); NEUTROPHILS % (AUTO) 79 % (42-75); PLATELET COUNT 271 10^3/uL (130-400); WHITE BLOOD COUNT 11.3 10^3/uL (4.3-11.0)
[2020-09-20 03:40] LABS: CHLORIDE 101 MMOL/L (98-107); POTASSIUM 3.7 MMOL/L (3.6-5.0); SODIUM 135 MMOL/L (135-145)
[2020-09-20 03:41] LABS: CALCIUM 8.7 MG/DL (8.5-10.1)
[2020-09-20 03:42] LABS: GLUCOSE 210 MG/DL (70-105)
[2020-09-20 03:43] LABS: CARBON DIOXIDE 23 MMOL/L (21-32)
[2020-09-20 03:45] LABS: PHOSPHORUS 2.9 MG/DL (2.3-4.7)
[2020-09-20 03:46] LABS: GFR ESTIMATED > 60
[2020-09-20 03:47] LABS: BUN/CREATININE RATIO 22
[2020-09-20 03:48] LABS: MAGNESIUM 3.6 MG/DL (1.6-2.4)
[2020-09-20] MEDS: MAGNESIUM 1 GM/100 ML IVPB 100 ML IV SCH (04:18)
[2020-09-20] MEDS: KCL 20 MEQ TAB (K-DUR) PO SCH (04:18)
[2020-09-20] MEDS: POTASSIUM CL 10MEQ/50ML IVPB 50 ML IV SCH (04:18)
[2020-09-20] MEDS: PIPERACILLIN/TAZO 4.5 GM/NS 100 ML IV SCH ×6 (05:05→20:26)
[2020-09-20] MEDS: FAMOTIDINE 20MG/2ML IV (PEPCID) IVP SCH ×2 (08:34→20:26)
[2020-09-20] MEDS: LOPERAMIDE 2 MG (IMODIUM) TABLET PO PRN (08:35)
--- NOTE | 2020-09-20 08:36 | Diagnostic Imaging Report ---
EXAMINATION: Portable erect AP chest at 4:05 AM INDICATION: Respiratory distress The cardiomegaly and the diffuse alveolar/interstitial pulmonary infiltrates seen on the prior exam of 09/19/2020 are again evident. The density in both lungs has increased somewhat, particularly in the right upper lobe. The mediastinum is not widened. The osseous structures are intact. IMPRESSION: The appearance of the chest has worsened somewhat since the prior exam as there does seem to be greater involvement of both lungs by pneumonia/atelectasis. Dictated by: Dictated on workstation # [id number]
--- NOTE | 2020-09-20 14:42 | Progress Note - Hospitalist ---
Subjective HPI/CC On Admission Date Seen by Provider: Sep 20, 2020 Time Seen by Provider: 10:35 Subjective/Events-last exam He feels like his shortness of breath is improving. He still gets short of breath and is up and moving around. He is still having diarrhea. Objective Exam Vital Signs Vital Signs Date Time Temp Pulse Resp B/P (MAP) Pulse Ox O2 Delivery O2 Flow Rate FiO2 09/20/20 14:18 89 Vapotherm 25.00 80 09/20/20 13:00 69 09/20/20 12:00 24 120/78 (92) 09/20/20 07:31 35.7 Capillary Refill : Less Than 3 SecondsLess Than 3 Seconds General Appearance: No Apparent Distress, Obese Respiratory: Lungs Clear, Normal Breath Sounds, No Respiratory Distress Cardiovascular: Regular Rate, Rhythm, No Edema, No Murmur Gastrointestinal: Normal Bowel Sounds, Non Tender, Soft Extremity: Normal Inspection, Non Tender, No Pedal Edema Neurologic/Psychiatric: Alert, Oriented x3, No Motor/Sensory Deficits, Normal Mood/Affect Skin: Normal Color, Warm/Dry Results/Procedures Lab Laboratory Tests 09/20/20 03:10 Patient resulted labs reviewed. Imaging: Reviewed Imaging Report Assessment/Plan Assessment and Plan Assess & Plan/Chief Complaint ARDS due to COVID-19 PNA due to COVID-19 Diarrhea due to COVID-19 Hypercoagulable state associated with COVID-19 PNA Decadron Not a candidate for Remdesivir s/p convalescent plasma x1 Zosyn for bacterial pneumonia Vapotherm and BiPAP as needed Imodium as needed for diarrhea Proning as tolerated Incentive spirometry D-dimer trending up Perform CT Chest to rule out PE Prophylactic Lovenox Elevated LFTs Likely due to COVID Hepatitis panel negative Monitor Obesity Clinically significant, no acute management needs DVT prophylaxis: Lovenox Diagnosis/Problems Diagnosis/Problems (1) Acute respiratory distress syndrome (ARDS) due to COVID-19 virus Status: Acute (2) Pneumonia due to COVID-19 virus Status: Acute (3) PNA (pneumonia) Status: Acute (4) Elevated LFTs Status: Acute (5) Obesity Status: Chronic (6) Diarrhea due to COVID-19 Status: Acute Clinical Quality Measures DVT/VTE Risk/Contraindication: Risk Factor Score Per Nursin RFS Level Per Nursing on Admit: 4+=Very High ISHMAEL WEBER MD Sep 20, 2020 14:42
--- NOTE | 2020-09-20 15:10 | NUR ---
1450 PT TO ROOM 432 VIA W/C ACCOMPANIED BY THIS RN, REPORT GIVEN TO SCHUYLER LANDRY PRIOR TO TRANSFER. ALL PERSONAL BELONGINGS SENT WITH PT.
[2020-09-20] MEDS ORDERED: NS 100 ML (IVPB) BAG IV ONE (16:00)
[2020-09-20] MEDS ORDERED: IOHEXOL 350 MG/ML 100 ML (OMNIPAQUE 350) VIAL IV ONE (16:00)
[2020-09-20] MEDS ORDERED: HOLD METFORMIN - RECEIVED CONTRAST 20 ML VIAL IV SCH (16:00)
[2020-09-20] MEDS: ENOXAPARIN 40 MG/0.4 ML (LOVENOX) SYR SC SCH (17:15)
--- NOTE | 2020-09-20 18:01 | Diagnostic Imaging Report ---
INDICATION: Positive d-dimer, shortness of breath. TECHNIQUE: Multiple contiguous axial images were obtained through the chest after uneventful bolus administration of intravenous contrast. 3D reconstructed CTA MIP acquisitions were also performed. Auto Exposure Controls were utilized during the CT exam to meet ALARA standards for radiation dose reduction. COMPARISON: There is no previous CTA for comparison. FINDINGS: The thoracic aortic arch is normal in caliber with no evidence of aneurysm or dissection. Great vessel origins are patent. The pulmonary parenchymal vessels are well-opacified with no CT evidence of pulmonary emboli. There is no pleural or pericardial fluid. There is no adenopathy in the mediastinum or renée. Visualized portions of the upper abdomen show no acute finding. Lung parenchymal windows demonstrate extensive alveolar and groundglass infiltrates throughout both lungs, compatible with atypical pneumonia, elevated pneumonia is in the differential. IMPRESSION: No CT evidence of pulmonary emboli, aortic dissection or aneurysm. Extensive infiltrates are seen throughout both lungs compatible with atypical pneumonia, Covid pneumonia would be in the differential. Dictated by: Dictated on workstation # [id number]
[2020-09-21] MEDS: RT-ALBUTEROL INHALER HFA (VENTOLIN HFA) 18 GM IH SCH ×5 (01:49→20:04)
[2020-09-21] MEDS: PIPERACILLIN/TAZO 4.5 GM/NS 100 ML IV SCH ×4 (04:38→12:05)
[2020-09-21 05:26] LABS: BASOPHILS % (AUTO) 0 % (0-10); EOSINOPHILS # (AUTO) 0.3 10^3/uL (0.0-0.3); EOSINOPHILS % (AUTO) 3 % (0-10); HEMATOCRIT 38 % (40-54); HEMOGLOBIN 13.2 g/dL (13.3-17.7); LYMPHOCYTES # (AUTO) 0.9 10^3/uL (1.0-4.0); LYMPHOCYTES % (AUTO) 9 % (12-44); MEAN CORPUSCULAR HEMOGLOBIN 31 pg (25-34); MEAN CORPUSCULAR HGB CONC 35 g/dL (32-36); MEAN CORPUSCULAR VOLUME 87 fL (80-99); MEAN PLATELET VOLUME 9.3 fL (9.0-12.2); MONOCYTES % (AUTO) 9 % (0-12); NEUTROPHILS % (AUTO) 76 % (42-75); PLATELET COUNT 309 10^3/uL (130-400); WHITE BLOOD COUNT 10.5 10^3/uL (4.3-11.0)
[2020-09-21 05:46] LABS: CHLORIDE 104 MMOL/L (98-107); POTASSIUM 4.1 MMOL/L (3.6-5.0); SODIUM 137 MMOL/L (135-145)
[2020-09-21 05:47] LABS: CALCIUM 8.7 MG/DL (8.5-10.1)
[2020-09-21 05:48] LABS: GLUCOSE 122 MG/DL (70-105)
[2020-09-21 05:49] LABS: CARBON DIOXIDE 20 MMOL/L (21-32)
[2020-09-21 05:51] LABS: PHOSPHORUS 3.4 MG/DL (2.3-4.7)
[2020-09-21 05:52] LABS: BUN/CREATININE RATIO 22; CREATININE SERUM 0.88 MG/DL (0.60-1.30); GFR ESTIMATED > 60
[2020-09-21 05:54] LABS: MAGNESIUM 2.3 MG/DL (1.6-2.4)
[2020-09-21] MEDS: FAMOTIDINE 20MG/2ML IV (PEPCID) IVP SCH ×2 (08:12→20:04)
--- NOTE | 2020-09-21 10:58 | Progress Note - Hospitalist ---
Subjective HPI/CC On Admission Date Seen by Provider: Sep 21, 2020 Time Seen by Provider: 10:54 Subjective/Events-last exam Pt reports doing well. Wondering about when he will go home as he is feeling better. Objective Exam Vital Signs Vital Signs Date Time Temp Pulse Resp B/P (MAP) Pulse Ox O2 Delivery O2 Flow Rate FiO2 09/21/20 09:00 High Flow N/C 8.00 09/21/20 08:56 36.9 68 20 132/79 (96) 91 09/20/20 14:18 80 Capillary Refill : Less Than 3 SecondsLess Than 3 Seconds General Appearance: No Apparent Distress, WD/WN Respiratory: Lungs Clear, No Accessory Muscle Use Cardiovascular: Regular Rate, Rhythm, No Murmur Neurologic/Psychiatric: Alert, Oriented x3 Results/Procedures Lab Laboratory Tests 09/21/20 04:46 Patient resulted labs reviewed. Imaging: Reviewed Imaging Report Assessment/Plan Assessment and Plan Assess & Plan/Chief Complaint ARDS due to COVID-19 PNA due to COVID-19 Diarrhea due to COVID-19 Hypercoagulable state associated with COVID-19 PNA Decadron Not a candidate for Remdesivir s/p convalescent plasma x1 Zosyn for bacterial pneumonia Down to 8lpm this AM Imodium as needed for diarrhea Proning as tolerated Incentive spirometry PCTA negative for PE Prophylactic Lovenox Elevated LFTs Likely due to COVID Hepatitis panel negative Monitor Obesity Clinically significant, no acute management needs DVT prophylaxis: Lovenox Clinical Quality Measures DVT/VTE Risk/Contraindication: Risk Factor Score Per Nursin RFS Level Per Nursing on Admit: 4+=Very High HUY MAGANA MD Sep 21, 2020 10:58
[2020-09-21] MEDS: LOPERAMIDE 2 MG (IMODIUM) TABLET PO PRN (14:09)
[2020-09-21] MEDS: ENOXAPARIN 40 MG/0.4 ML (LOVENOX) SYR SC SCH (16:19)
[2020-09-22] MEDS: RT-ALBUTEROL INHALER HFA (VENTOLIN HFA) 18 GM IH SCH ×3 (02:26→10:22)
[2020-09-22 05:48] LABS: BASOPHILS % (AUTO) 0 % (0-10); EOSINOPHILS # (AUTO) 0.2 10^3/uL (0.0-0.3); EOSINOPHILS % (AUTO) 2 % (0-10); HEMATOCRIT 38 % (40-54); HEMOGLOBIN 13.1 g/dL (13.3-17.7); LYMPHOCYTES # (AUTO) 1.2 10^3/uL (1.0-4.0); LYMPHOCYTES % (AUTO) 12 % (12-44); MEAN CORPUSCULAR HEMOGLOBIN 30 pg (25-34); MEAN CORPUSCULAR HGB CONC 35 g/dL (32-36); MEAN CORPUSCULAR VOLUME 87 fL (80-99); MEAN PLATELET VOLUME 9.2 fL (9.0-12.2); MONOCYTES # (AUTO) 1.1 10^3/uL (0.0-1.0); MONOCYTES % (AUTO) 11 % (0-12); NEUTROPHILS # (AUTO) 7.2 10^3/uL (1.8-7.8); NEUTROPHILS % (AUTO) 72 % (42-75); PLATELET COUNT 335 10^3/uL (130-400); WHITE BLOOD COUNT 9.9 10^3/uL (4.3-11.0)
[2020-09-22 05:53] LABS: CHLORIDE 106 MMOL/L (98-107); POTASSIUM 3.5 MMOL/L (3.6-5.0); SODIUM 139 MMOL/L (135-145)
[2020-09-22 05:54] LABS: CALCIUM 8.5 MG/DL (8.5-10.1)
[2020-09-22 05:55] LABS: GLUCOSE 159 MG/DL (70-105)
[2020-09-22 05:56] LABS: CARBON DIOXIDE 21 MMOL/L (21-32)
[2020-09-22 05:58] LABS: PHOSPHORUS 3.4 MG/DL (2.3-4.7)
[2020-09-22 05:59] LABS: CREATININE SERUM 0.85 MG/DL (0.60-1.30); GFR ESTIMATED > 60
[2020-09-22 06:00] LABS: BUN/CREATININE RATIO 19
[2020-09-22 06:01] LABS: MAGNESIUM 2.2 MG/DL (1.6-2.4)
[2020-09-22] MEDS: FAMOTIDINE 20MG/2ML IV (PEPCID) IVP SCH (08:56)
--- NOTE | 2020-09-22 10:28 | NUR ---
pts spo2 dropped to 79% while up walking in room, pt was placed on 2lpm for 2 mins 88% was the highest saturation achieved. placed on 3lpm pts sp02 after 3 mins walking 92%. pt qualifies for 3lpm NC. Addendum: 09/22/20 at 1030 by MAURICIO MCGEE RT Amended: Links added.
--- NOTE | 2020-09-22 10:50 | Discharge Summary ---
Diagnosis/Chief Complaint Date of Admission Sep 16, 2020 at 15:37 Date of Discharge Primary Care Uriel Orr MD Discharge Diagnosis (1) Acute respiratory distress syndrome (ARDS) due to COVID-19 virus Status: Acute (2) Pneumonia due to COVID-19 virus Status: Acute (3) PNA (pneumonia) Status: Acute (4) Elevated LFTs Status: Acute (5) Obesity Status: Chronic (6) Diarrhea due to COVID-19 Status: Acute Discharge Summary Discharge Physical Exam Allergies: Coded Allergies: codeine (Verified Allergy, Unknown, 08/18/08) Vitals & I&Os Vital Signs Date Time Temp Pulse Resp B/P (MAP) Pulse Ox O2 Delivery O2 Flow Rate FiO2 09/22/20 17:01 36.5 99 16 92 Nasal Cannula 3.00 09/20/20 14:18 80 General Appearance: No Apparent Distress, WD/WN Respiratory: Lungs Clear, No Respiratory Distress Cardiovascular: Regular Rate, Rhythm, No Murmur Neurologic/Psychiatric: Alert, Oriented x3 Hospital Course Pt was admitted with acute hypoxic respiratory failure due to COVID19. He was treated with decadron, and convalescent plasma and did well. He was able to be titrate off of oxygen completely at rest but required exertional oxygen. This was arranged and he was discharged home in stable and improved condition to follow up this hospital stay with his primary care doctor. Labs (last 24 hrs) Laboratory Tests 09/22/20 05:22: White Blood Count 9.9, Red Blood Count 4.35, Hemoglobin 13.1L, Hematocrit 38L, Mean Corpuscular Volume 87, Mean Corpuscular Hemoglobin 30, Mean Corpuscular Hemoglobin Concent 35, Red Cell Distribution Width 11.9, Platelet Count 335, Mean Platelet Volume 9.2, Immature Granulocyte % (Auto) 2, Neutrophils (%) (Auto) 72, Lymphocytes (%) (Auto) 12, Monocytes (%) (Auto) 11, Eosinophils (%) (Auto) 2, Basophils (%) (Auto) 0, Neutrophils # (Auto) 7.2, Lymphocytes # (Auto) 1.2, Monocytes # (Auto) 1.1H, Eosinophils # (Auto) 0.2, Basophils # (Auto) 0.0, Immature Granulocyte # (Auto) 0.2H, Sodium Level 139, Potassium Level 3.5L, Chloride Level 106, Carbon Dioxide Level 21, Anion Gap 12, Blood Urea Nitrogen 16, Creatinine 0.85, Estimat Glomerular Filtration Rate > 60, BUN/Creatinine Ratio 19, Glucose Level 159H, Calcium Level 8.5, Phosphorus Level 3.4, Magnesium Level 2.2 Microbiology 09/18/20 C. difficile GDH Antigen & Toxins - Final, Complete 09/16/20 Urine Culture - Final, Complete NO GROWTH 09/16/20 MRSA Screen - Final, Complete MRSA not isolated 09/16/20 Blood Culture - Final, Complete No growth Patient resulted labs reviewed. Pending Labs Imaging: Reviewed Imaging Report Discussion & Recommendations Discharge Planning: >30 minutes discharge planning Discharge Home Medications: Active Scripts Active Reported All Day Allergy (Cetirizine HCl) 10 Mg Tablet 10 Mg PO DAILY Multivitamin 1 Each Tablet 1 Each PO DAILY Aspirin EC (Aspirin) 81 Mg Tablet.dr 81 Mg PO DAILY Zinc (Zinc Gluconate) 50 Mg Tablet 50 Mg PO DAILY Vitamin C (Ascorbate Calcium) 500 Mg Tablet 500 Mg PO DAILY Vitamin D3 (Cholecalciferol (Vitamin D3)) 25 Mcg Capsule 25 Mcg PO DAILY Ventolin Hfa (Albuterol Sulfate) 18 Gm Hfa.aer.ad 2 Puff INH QID PRN Meloxicam 15 Mg Tablet 15 Mg PO DAILY Dexamethasone 6 Mg Tablet 6 Mg PO DAILY FILLED 08-19-2020 #06/20 DAY SUPPLY Instructions to patient/family Please see electronic discharge instructions given to patient. Clinical Quality Measures DVT/VTE Risk/Contraindication: Risk Factor Score Per Nursin RFS Level Per Nursing on Admit: 4+=Very High HUY MAGANA MD Sep 22, 2020 10:50
--- NOTE | 2020-09-22 11:43 | Discharge Inst-Simple/Standard ---
Discharge Inst-Standard Patient Instructions/Follow Up Plan of Care/Instructions/FU: Please continue to take your medications as written. pPease follow up with your primary care doctor to follow up this hospital stay. Activity as Tolerated: Yes Discharge Diet: No Restrictions Return to The Hospital For: Chest pain, shortness of breath, fever, confusion, if you feel you are getting worse. HUY MAGANA MD Sep 22, 2020 11:43
--- NOTE | 2020-09-22 12:02 | NUR ---
NAYLA/KEVON finalized discharge. Plan: The patient will discharge to home self care today 09/22 with a new oxygen need. DME: The patient was provide with a choice list. He chose [id number] in [place]. NAYLA/KEVON contacted agency and spoke with Saritha. NAYLA/KEVON faxed script, o2 study, h&p, face sheet, and insurance. She reports they will be here to deliver after lunch. NAYLA/KEVON notified the patient's primary care nurse. Patient denied any further needs at this time. Addendum: 09/22/20 at 1206 by COLLEEN TRINH Oxygen: 3L with exertion.
== END 2020-09-22 17:03 | disposition home or self-care (01) | DRG 177 ==
LOC: EDUNIT# 12:32 → ER 12:34 → ICU 15:37 → 4TH 09-20 15:03
PROVIDERS: ADMIT Internal Medicine; ATTEND Internal Medicine
PROC: 5A09457 Assistance with Respiratory Ventilation, 24-96 Consecutive Hours, Continuous Positive Airway Pressure (ICD-10-PCS; principal; 2020-09-16)
PROC: XW13325 Transfusion of Convalescent Plasma (Nonautologous) into Peripheral Vein, Percutaneous Approach, New Technology Group 5 (ICD-10-PCS; 2020-09-17)
DX: U07.1 COVID-19 (principal); J12.82 Pneumonia due to coronavirus disease 2019; J80 Acute respiratory distress syndrome; A08.39 Other viral enteritis; E66.9 Obesity, unspecified; Z68.32 Body mass index [BMI] 32.0-32.9, adult; Z87.891 Personal history of nicotine dependence; Z96.60 Presence of unspecified orthopedic joint implant; Z88.6 Allergy status to analgesic agent; Z79.2 Long term (current) use of antibiotics; Z79.1 Long term (current) use of non-steroidal anti-inflammatories (NSAID); Z79.82 Long term (current) use of aspirin; Z73.0 Burn-out
CPT/HCPCS: 36415; 71045; 71275; 80048; 80053; 80074; 81000; 82805; 83605; 83615; 83735; 84100; 84145; 85025; 85379; 85610; 85730; 86141; 86900; 86901; 87040; 87081; 87088; 87324; 87449; 94640; 94660; 94664; 94760; 94761; 99291